=== PATIENT | male | born 1955 | race Two or more races ===

== ENCOUNTER 2021-12-08 14:16 | Emergency (ER) | payer OTHER, MEDICAID ==
[~2021-12-08] VITALS: Ht 167.6 cm; Wt 100.0 kg
[2021-12-08 14:30] VITALS: BP 138/79
== END 2021-12-08 17:08 | disposition left against medical advice (07) ==
LOC: ER 14:16
DX: Z53.21 Procedure and treatment not carried out due to patient leaving prior to being seen by health care provider (principal)
CPT/HCPCS: 93005

== ENCOUNTER 2022-06-20 15:43 | Inpatient (IN) | payer OTHER, MEDICAID ==
[~2022-06-20] VITALS: Ht 170.2 cm; Wt 112.0 kg
[2022-06-20] VITALS (12 sets, daily range): BP systolic 154–205; BP diastolic 39–102
[2022-06-20] MEDS ORDERED: TENECTEPLASE 50MG/VIAL IV NR (16:30)
[2022-06-20 16:51] LABS: BASOPHILS % 0.2 % (0.0-2.0); EOSINOPHILS % 1.8 % (0.0-5.0); HEMATOCRIT. 39.7 % (42.0-52.0); LYMPHOCYTES % 15.2 % (20.0-50.0); MEAN CORPUSCULAR HEMOGLOBIN 25.7 pg (28.0-32.0); MEAN CORPUSCULAR VOLUME 78.5 fL (80.0-94.0); MEAN PLATELET VOLUME 6.9 fl (7.4-10.4); MONOCYTES % 6.3 % (2.0-8.0); NEUTROPHILS % 76.5 % (40.0-76.0); PLATELET 277 x1000/uL (130-400); RED BLOOD CELL COUNT 5.06 mill/uL (4.7-6.1); RED CELL DISTRIBUTION WIDTH 16.9 % (11.6-14.6)
[2022-06-20 17:00] LABS: PROTHROMBIN TIME 10.9 sec (9.6-11.0)
[2022-06-20] MEDS ORDERED: *TENECTEPLASE FOR AIS XX SCH (17:00)
[2022-06-20 17:02] LABS: CHLORIDE 106 mEq/L (98-107)
[2022-06-20 17:13] LABS: ETHANOL BLOOD < 10 mg/dL
[2022-06-20] MEDS ORDERED: CLONIDINE 0.2MG TABLET PO PRN (22:00)
[2022-06-20] MEDS ORDERED: DEXTROSE 50% WATER 50ML SYRINGE IV PRN (22:00)
[2022-06-20] MEDS ORDERED: HYDRALAZINE 20MG/ML VIAL IV PRN (22:45)
[2022-06-20] MEDS ORDERED: IOHEXOL-350 100 ML BOTTLE ONE (23:29)
[2022-06-21] VITALS (52 sets, daily range): BP systolic 101–164; BP diastolic 43–95
[2022-06-21 06:08] LABS: BASOPHILS % 0.2 % (0.0-2.0); EOSINOPHILS % 2.1 % (0.0-5.0); HEMATOCRIT. 39.2 % (42.0-52.0); HEMOGLOBIN. 12.8 g/dL (14.0-18.0); LYMPHOCYTES % 22.4 % (20.0-50.0); MEAN CORPUSCULAR HEMOGLOBIN 25.6 pg (28.0-32.0); MEAN CORPUSCULAR VOLUME 78.4 fL (80.0-94.0); MONOCYTES % 7.5 % (2.0-8.0); NEUTROPHILS % 67.8 % (40.0-76.0); PLATELET 255 x1000/uL (130-400)
[2022-06-21 06:09] LABS: CHLORIDE 109 mEq/L (98-107)
[2022-06-21 06:21] LABS: PHOSPHORUS 2.8 mg/dL (2.5-4.9)
[2022-06-21] MEDS: BLOOD SUGAR DIAGNOSTIC STRIP TEST SCH ×4 (07:16→21:31)
[2022-06-21] MEDS: INSULIN LISPRO 100 UNITS/ML SUBCUT SCH ×4 (07:18→21:00)
[2022-06-21] MEDS: PANTOPRAZOLE 40MG DR TABLET PO SCH (08:39)
[2022-06-21] MEDS: ATORVASTATIN CALCIUM 40MG TABLET PO SCH (08:40)
[2022-06-21] MEDS: DOCUSATE SODIUM 100MG CAPSULE PO SCH ×2 (08:40→17:51)
[2022-06-21] MEDS: ACETAMINOPHEN 325MG TABLET PO PRN (10:02)
[2022-06-21] MEDS: ASPIRIN 81MG EC TABLET PO SCH (19:28)
[2022-06-21] MEDS: CLOPIDOGREL 75MG TABLET PO SCH (19:28)
[2022-06-21] MEDS ORDERED: ATORVASTATIN CALCIUM 40MG TABLET PO SCH (21:00)
[2022-06-22] VITALS (24 sets, daily range): BP systolic 126–172; BP diastolic 61–87
[2022-06-22 06:55] LABS: BASOPHILS % 0.3 % (0.0-2.0); EOSINOPHILS % 2.3 % (0.0-5.0); HEMATOCRIT. 39.3 % (42.0-52.0); MEAN CORPUSCULAR HEMOGLOBIN 25.9 pg (28.0-32.0); MEAN CORPUSCULAR VOLUME 78.2 fL (80.0-94.0); MEAN PLATELET VOLUME 7.2 fl (7.4-10.4); MONOCYTES % 7.7 % (2.0-8.0); NEUTROPHILS % 69.7 % (40.0-76.0); PLATELET 258 x1000/uL (130-400); RED BLOOD CELL COUNT 5.03 mill/uL (4.7-6.1)
[2022-06-22 06:58] LABS: CHLORIDE 110 mEq/L (98-107)
[2022-06-22] MEDS: BLOOD SUGAR DIAGNOSTIC STRIP TEST SCH ×4 (07:03→21:31)
[2022-06-22] MEDS: INSULIN LISPRO 100 UNITS/ML SUBCUT SCH ×4 (07:03→21:00)
[2022-06-22] MEDS: PANTOPRAZOLE 40MG DR TABLET PO SCH (07:39)
[2022-06-22] MEDS: DOCUSATE SODIUM 100MG CAPSULE PO SCH ×2 (08:47→17:06)
[2022-06-22] MEDS: ASPIRIN 81MG EC TABLET PO SCH (08:48)
[2022-06-22] MEDS: CLOPIDOGREL 75MG TABLET PO SCH (08:48)
[2022-06-22] MEDS: ATORVASTATIN CALCIUM 40MG TABLET PO SCH (08:48)
[2022-06-22] MEDS: ACETAMINOPHEN 325MG TABLET PO PRN (17:07)
[2022-06-23] VITALS: BP 145/68
[2022-06-23 04:00] VITALS: BP 143/76
[2022-06-23] MEDS: PANTOPRAZOLE 40MG DR TABLET PO SCH (06:22)
[2022-06-23] MEDS: BLOOD SUGAR DIAGNOSTIC STRIP TEST SCH ×4 (06:22→20:30)
[2022-06-23] MEDS: INSULIN LISPRO 100 UNITS/ML SUBCUT SCH ×4 (06:23→20:30)
[2022-06-23 07:21] LABS: BASOPHILS % 0.2 % (0.0-2.0); EOSINOPHILS % 2.8 % (0.0-5.0); HEMATOCRIT. 41.3 % (42.0-52.0); HEMOGLOBIN. 13.6 g/dL (14.0-18.0); LYMPHOCYTES % 17.6 % (20.0-50.0); MEAN CORPUSCULAR HEMOGLOBIN 25.8 pg (28.0-32.0); MEAN CORPUSCULAR VOLUME 78.1 fL (80.0-94.0); MEAN PLATELET VOLUME 7.1 fl (7.4-10.4); MONOCYTES % 8.9 % (2.0-8.0); NEUTROPHILS % 70.5 % (40.0-76.0); PLATELET 274 x1000/uL (130-400); RED BLOOD CELL COUNT 5.29 mill/uL (4.7-6.1); RED CELL DISTRIBUTION WIDTH 17.1 % (11.6-14.6)
[2022-06-23 07:55] LABS: CHLORIDE 108 mEq/L (98-107)
[2022-06-23 08:00] VITALS: BP 125/68
[2022-06-23 08:02] LABS: HDL CHOLESTEROL 55 mg/dL (40-59); LDL CHOLESTEROL 75 mg/dL (5-100)
[2022-06-23] MEDS: DOCUSATE SODIUM 100MG CAPSULE PO SCH ×2 (09:44→18:41)
[2022-06-23] MEDS: ASPIRIN 81MG EC TABLET PO SCH (09:44)
[2022-06-23] MEDS: CLOPIDOGREL 75MG TABLET PO SCH (09:44)
[2022-06-23 12:00] VITALS: BP 119/75
[2022-06-23 16:00] VITALS: BP 122/72
[2022-06-23] MEDS: ENOXAPARIN 30MG/0.3ML SYR SUBCUT SCH (18:41)
[2022-06-23 20:00] VITALS: BP 138/72
[2022-06-23] MEDS ORDERED: ATORVASTATIN CALCIUM 40MG TABLET PO SCH (21:00)
[2022-06-24] VITALS: BP 140/71
[2022-06-24] MEDS: ENOXAPARIN 30MG/0.3ML SYR SUBCUT SCH ×2 (02:30→14:24)
[2022-06-24 04:00] VITALS: BP 151/80
[2022-06-24] MEDS: INSULIN LISPRO 100 UNITS/ML SUBCUT SCH ×4 (06:21→20:36)
[2022-06-24] MEDS: BLOOD SUGAR DIAGNOSTIC STRIP TEST SCH ×4 (06:21→20:32)
[2022-06-24 08:00] VITALS: BP 139/77
[2022-06-24] MEDS: DOCUSATE SODIUM 100MG CAPSULE PO SCH ×2 (10:49→17:11)
[2022-06-24] MEDS: FAMOTIDINE 20MG TABLET PO SCH ×2 (10:49→20:35)
[2022-06-24] MEDS: ASPIRIN 81MG EC TABLET PO SCH (10:49)
[2022-06-24] MEDS: CLOPIDOGREL 75MG TABLET PO SCH (10:49)
[2022-06-24] MEDS: AMLODIPINE 10MG TABLET PO SCH (10:56)
[2022-06-24 12:00] VITALS: BP 129/70
[2022-06-24 16:00] VITALS: BP 122/65
[2022-06-24 20:00] VITALS: BP 142/81
[2022-06-24] MEDS: ATORVASTATIN CALCIUM 40MG TABLET PO SCH (20:35)
[2022-06-25] VITALS (7 sets, daily range): BP systolic 127–151; BP diastolic 68–76
[2022-06-25] MEDS: ENOXAPARIN 30MG/0.3ML SYR SUBCUT SCH ×2 (01:39→17:32)
[2022-06-25] MEDS: INSULIN LISPRO 100 UNITS/ML SUBCUT SCH ×3 (07:10→17:38)
[2022-06-25] MEDS: BLOOD SUGAR DIAGNOSTIC STRIP TEST SCH ×3 (07:10→17:10)
[2022-06-25 07:15] LABS: BASOPHILS % 0.5 % (0.0-2.0); EOSINOPHILS % 3.9 % (0.0-5.0); HEMOGLOBIN. 13.4 g/dL (14.0-18.0); MEAN CORPUSCULAR HEMOGLOBIN 25.9 pg (28.0-32.0); MEAN CORPUSCULAR VOLUME 77.5 fL (80.0-94.0); MEAN PLATELET VOLUME 7.1 fl (7.4-10.4); MONOCYTES % 8.6 % (2.0-8.0); PLATELET 294 x1000/uL (130-400); RED BLOOD CELL COUNT 5.17 mill/uL (4.7-6.1); RED CELL DISTRIBUTION WIDTH 16.4 % (11.6-14.6)
[2022-06-25 07:32] LABS: CHLORIDE 107 mEq/L (98-107)
[2022-06-25] MEDS: ATORVASTATIN CALCIUM 40MG TABLET PO SCH (08:45)
[2022-06-25] MEDS: ASPIRIN 81MG EC TABLET PO SCH (08:45)
[2022-06-25] MEDS: CLOPIDOGREL 75MG TABLET PO SCH (08:48)
[2022-06-25] MEDS: FAMOTIDINE 20MG TABLET PO SCH (08:48)
[2022-06-25] MEDS: DOCUSATE SODIUM 100MG CAPSULE PO SCH ×2 (08:48→17:32)
[2022-06-25] MEDS: AMLODIPINE 10MG TABLET PO SCH (08:53)
[2022-06-25] MEDS ORDERED: ASPI-1406 PO (16:45)
[2022-06-25] MEDS ORDERED: LIP40 PO (16:45)
[2022-06-25] MEDS ORDERED: CLOP-31 PO (16:45)
[2022-06-25] MEDS ORDERED: AMLO10TA80 PO (16:45)
== END 2022-06-25 18:45 | disposition home or self-care (01) | DRG 65 ==
LOC: ER 15:43 → EDBEDREQ 16:50 → CVICU 16:54 → ENRESERV 20:02 → 8WST 06-22 10:07
PROVIDERS: ADMIT Internal Medicine; ATTEND Internal Medicine
DX: I63.9 Cerebral infarction, unspecified (principal); G81.94 Hemiplegia, unspecified affecting left nondominant side; G51.0 Bell's palsy; E11.9 Type 2 diabetes mellitus without complications; E78.00 Pure hypercholesterolemia, unspecified; Z90.49 Acquired absence of other specified parts of digestive tract; Z68.38 Body mass index [BMI] 38.0-38.9, adult; E66.01 Morbid (severe) obesity due to excess calories
CPT/HCPCS: 36415; 70496; 70498; 70551; 71045; 80048; 80053; 80061; 80320; 82962; 83036; 83735; 84100; 84484; 85025; 92610; 93005; 93306; 95816; 97116; 97162; 99291; J1650; J1815; J2997; Q9967; G0480